=== PATIENT | male | born 1980 | race Caucasian/White ===

== ENCOUNTER → 2017-03-29 | Outpatient (CLI) | payer BC ==
--- NOTE | 2017-03-29 09:45 | DIAGNOSTIC IMAGING REPORT ---
ABDOMINAL ULTRASOUND, RIGHT UPPER QUADRANT HISTORY: TESTICULAR Cancer, epigastric PAIN. COMPARISON: None. FINDINGS: Pancreas: The pancreas demonstrates a normal echotexture. Liver: Unremarkable. Gallbladder: No gallbladder wall thickening. No gallstones. There are few small polyps with the largest measuring 3 mm. CBD: 4 mm. Right kidney: No hydronephrosis. IMPRESSION: A few small gallbladder polyps. No gallstones. Electronically signed by: Rambo Dixon M.D. 03/29/2017 9:44 AM Dictated Date/Time: 03/29/2017 9:42 AM
== END | disposition home or self-care (01) ==
LOC: C.ULTR 09:04
PROVIDERS: ATTEND Internal Medicine Hematology & Oncology
DX: C62.02 Malignant neoplasm of undescended left testis (principal); R10.13 Epigastric pain; K82.4 Cholesterolosis of gallbladder